=== PATIENT | male | born 1985 | race Caucasian/White ===

== ENCOUNTER 2019-03-05 14:48 | Emergency (ER) | payer MEDICARE, MEDICAID, SELFPAY ==
[2019-03-05] VITALS (45 sets, daily range): BP systolic 96–229; BP diastolic 34–159; PULSE 53–151; RESP 11–35; TEMP 36.8; O2SAT 70–100
--- NOTE | 2019-03-05 15:05 | DI.RAD_ITS ---
EXAM: XR PORTABLE CHEST AP INDICATION: SOB. COMPARISON: No exams were available for comparison TECHNIQUE: 2D digital imaging was performed. FINDINGS: The exam is quite limited by positioning, body habitus and lack of pulmonary inflation. The heart si ze is within normal limits for projection. The lungs are grossly clear. IMPRESSION: Limited exam. No gross evidence of an acute abnormality.
[2019-03-05] MEDS: LORazepam 2 MG/ML VIAL 1 MG IVP (15:16)
[2019-03-05] MEDS: Normal Saline 1,000 ML 1000 ML IV (15:18)
[2019-03-05 15:32] LABS: Abs Immature Grans 0.05 k/cumm (0.0-0.09); Absolute Monocyte Count 1.81 k/cumm (0.11-0.7); Absolute Neutrophil Count 6.51 k/cumm (1.2-6.7); Basophils % 0.8; Eosinophils % 0.5; HCT 38.7 % (40.0-50.0); HGB 11.7 g/dL (13.5-17.5); Immature Grans % 0.4; Mean Corp. HGB Concentration 30.2 g/dL (32.0-36.0); Mean Corpuscular Hemoglobin 23.7 pg (27.0-33.0); Mean Corpuscular Volume 78.5 fL (80-95); Mean Platelet Volume 9.7 fL (8.0-11.0); Neutrophils % 50.3; RBC 4.93 m/cumm (4.50-6.00); RBC Distribution Width 17.1 % (11.8-14.1); White Blood Cell Count 12.94 k/cumm (4.4-10.8)
[2019-03-05] MEDS: Naloxone 0.4 MG/ML VIAL IVP (15:36)
[2019-03-05 15:41] LABS: ALT 126 U/L (16-63); AST 67 U/L (15-37); Albumin 3.4 g/dL (3.4-5.0); Alkaline Phosphatase 97 U/L (46-116); Anion Gap 9.4 mmol/L (3-11); BUN 22 mg/dL (7-18); Bilirubin, Total 0.3 mg/dL (0.2-1.0); CO2 26.6 mmol/L (21.0-32.0); CREATININE 1.91 mg/dL (0.70-1.30); Calcium 8.7 mg/dL (8.5-10.1); Chloride 102 mmol/L (98-107); Estimated GFR 40.78 (mL/min/1.73m2); Glucose 99 mg/dL (70-100); Potassium 4.2 mmol/L (3.5-5.1); Sodium 138 mmol/L (136-145); Total Protein 8.5 g/dL (6.4-8.2)
[2019-03-05 15:42] LABS: Troponin I < 0.05 ng/mL (0.00-0.06)
[2019-03-05 15:45] LABS: INR 1.1 (0.9-1.1); NT-proBNP 147 pg/mL
[2019-03-05] MEDS: Pantoprazole 40 MG VIAL IVP (15:50)
[2019-03-05] MEDS: Normal Saline Flush 10 ML SYR IVP (15:50)
[2019-03-05 15:53] LABS: Absolute Eosinophil Count 0.06 k/cumm (0.0-0.7); Platelet Count 581 x1000/uL (130-400)
[2019-03-05 15:54] LABS: Anisocytosis 1+; Diff Comment Agrees w/ Instrument; Microcytosis 1+; Polychromasia Present
[2019-03-05 16:01] LABS: D-Dimer 653 ng/mlFEU (<500)
--- NOTE | 2019-03-05 17:22 | DI.RAD_ITS ---
EXAM: XR PORTABLE CHEST AP POST LINE CLINICAL HISTORY: tube placement TECHNIQUE: Supine portable AP chest was obtained 1720 hours. COMPARISON: XR PORTABLE CHEST AP from 03/05/2019 FINDINGS: There is a small endotracheal tube positioned over the mediastinal midline about 4 cm above the dodie na. There is new diffuse mediastinal and subcutaneous emphysema, not present on examination at 1525 hours. Correlation requested regarding tracheobronchial injury. There are diffuse bilateral pulmona ry infiltrates also new since the previous examination, the findings are nonspecific but may represen t ARDS and/or CHF. Cardiac size appears mildly enlarged. IMPRESSION: Appropriate follow-up examinations recommended. Chest CT may be obtained for further evaluation.
[2019-03-05] MEDS: LORazepam 2 MG/ML VIAL (17:35)
--- NOTE | 2019-03-05 18:07 | DI.VRAD_ITS ---
Addendum created by Alan Zepeda MD on 03/05/2019 6:11:50 PM EST Findings were discussed with FITO FINK at 03/05/2019 6:11 PM EST. Initial report created on 03/05/2019 6:06:45 PM EST PROCEDURE INFORMATION: Exam: XR Chest, 1 View Exam date and time: 03/05/2019 5:44 PM Clinical history: 33 years old, male; Other: Tube placement TECHNIQUE: Imaging protocol: XR of the chest Views: 1 view. COMPARISON: CR XR PORTABLE CHEST AP 03/05/2019 3:12 PM FINDINGS: Tubes, catheters and devices: Small caliber endotracheal tube is satisfactory positioned 3.8 cm above the monisha. Lungs: There are extensive diffuse bilateral groundglass pulmonary opacities. Pleural space: Unremarkable. No pleural effusion. No pneumothorax. Heart/Mediastinum: Mild cardiomegaly considering limitations of the AP supine projection. Vasculature: The apex of a vena cava filter is incidentally visualized. Bones/joints: Unremarkable. Soft tissues: There is pneumomediastinum as well as extensive bilateral subcutaneous emphysema. IMPRESSION: 1. Satisfactory position of endotracheal tube. 2. Pneumomediastinum and subcutaneous emphysema of uncertain origin. Recent surgery or penetrating injury would be primary considerations for this combination of findings. 3. Bilateral pulmonary opacities consistent with pulmonary edema, ARDS, or extensive pneumonia. Dictated and Authenticated by: Alan Zepeda MD. Ordering:SIMON Blum MD
--- NOTE | 2019-03-05 18:12 | SCONE_ITS ---
Date of service: 03/05/19 Time of Service: 18:12 Assessment and Plan Assessment and plan (1) Respiratory distress: Status: Acute Assessment and plan: A\\ 33 year old with oropharyngeal swelling with re spiratory distress and eventual loss of the airway. P\\ Emergent cricothyroidectomy History of Present Illness History of Present Illness Chief Complaint: Respiratory distress Narrative: Mr. Allison is a 33 year old male with a PMHx of drug abuse who came to the ER with respiratory distress after inhaled hot heroin. Patient was working hard to breath. He was coughing. Anesthesia was called to try and intubate patient. Please see their dictation Consults Consult date: 03/05/19 Requesting physician: Viktoria Main [facility] Medical History (Updated 03/05/19 @ 18:26 by Addie Trujillo MD) Drug abuse, continuous (Inactive) Hypercoagulable state (Acute) Surgical History (Updated 03/05/19 @ 18:19 by Addie Trujillo MD) H/O abdominal surgery (Acute) History of left below knee amputation (Acute) Social History Smoking/Tobacco Use Status: Current every day Tobacco Type: cigarettes Drug use: Current Sobriety Substance use type: crack/cocaine Details: mother states recent crack use Exam Const General: in distress, ill appearing and intoxicated appearing Nutritional Appearance: obese Neck Other: Thick and short neck. Hard to find the thyroid cartilage and crichoid membrane Results Last Vital Signs Temp 98.2 F 03/05/19 14:51 Pulse 122 H 03/05/19 14:51 Resp 28 H 03/05/19 14:51 Pulse Ox 88 L 03/05/19 14:51 Labs Result diagrams: 03/05/19 15:00 03/05/19 15:00 Labs: Laboratory Results - last 24 hr 03/05/19 03/05/19 03/05/19 15:00 15:00 15:00 WBC 12.94 H RBC 4.93 Hgb 11.7 L Hct 38.7 L MCV 78.5 L MCH 23.7 L MCHC 30.2 L RDW 17.1 H Plt Count 581 H MPV 9.7 Immature Gran % 0.4 Neutrophils % 50.3 Lymphocytes % 34.0 Monocytes % 14.0 Eosinophils % 0.5 Basophils % 0.8 Absolute Neutrophils 6.51 Absolute Lymphocytes 4.40 H Absolute Monocytes 1.81 H Absolute Eosinophils 0.06 Absolute Basophils 0.10 Differential Comment Agrees w/ instrument RBC Morphology See below Polychromasia Present Anisocytosis 1+ Microcytosis 1+ PT 11.0 INR 1.1 D-Dimer Sodium 138 Potassium 4.2 Chloride 102 Carbon Dioxide 26.6 Anion Gap 9.4 BUN 22 H Creatinine 1.91 H Estimated GFR/1.73 m2 40.78 Glucose 99 Calcium 8.7 Total Bilirubin 0.3 AST 67 H ALT 126 H Alkaline Phosphatase 97 Troponin I < 0.05 NT-Pro-B Natriuret Pep Total Protein 8.5 H Albumin 3.4 03/05/19 03/05/19 15:00 15:00 WBC RBC Hgb Hct MCV MCH MCHC RDW Plt Count MPV Immature Gran % Neutrophils % Lymphocytes % Monocytes % Eosinophils % Basophils % Absolute Neutrophils Absolute Lymphocytes Absolute Monocytes Absolute Eosinophils Absolute Basophils Differential Comment RBC Morphology Polychromasia Anisocytosis Microcytosis PT INR D-Dimer 653 H Sodium Potassium Chloride Carbon Dioxide Anion Gap BUN Creatinine Estimated GFR/1.73 m2 Glucose Calcium Total Bilirubin AST ALT Alkaline Phosphatase Troponin I NT-Pro-B Natriuret Pep 147 Total Protein Albumin Procedures Cricothyrotomy Indications: significant oropharyngeal edema Tube type: tracheal C-Spine immobilization present: No Patient preparations: local not needed and area cleansed with antiseptic Technique choice: surgical cricothyrotomy Endotracheal tube size: 6 Cuffed tube: Yes End tidal CO2 checked: positive Bilateral breath sounds: Yes Complications: subcutaneous emphysema and difficult to ventilate Additional comments: After multiple attempts at intubation the neck was quickly cleaned with betadine. An incision was made and I tried to place the needle into the cricoid cartilage but was unable. Patient coded at this time. CPR was started. While doing CPR a larger incision was made with a 15 blade. Visulaization was poor due to the patient body habitus with a large neck. Eventually the cricoid membrane was palpated. It was punctured with a 15 blade and opened with a hemostat. An attempt was made to place a 5 ET Tube. Patient was ventilated but there was no CO2 noted. Tube was removed. I placed my finger into the trachea and attempted again to place the tube without success. After a few attempts anesthesia was able to place a 6 tracheostomy tube. At this point patient was ventilated. Vaseline gauze was placed around the tube and the tube was secured.
--- NOTE | 2019-03-05 18:13 | NUR.NOTE ---
Nursing Note:16:00 preparing patient for visualization of airway with glidescope. Patient given lidocaine by Lawrence Khanna CRNA. Concern for laryngeal edema due to hoarseness of voice and respiratory distress. 16:16 Ketamine 50 mg IV given. 16:20 patient still agitated 50mg of Ketamine given IV. 16:22 50 mg of Ketamine given IV. 16:29 Patient still agitated respirations 32 Versed 1 mg given as ordered. 16:34 2 more mg Versed IV given 16:35 Ketamine 50mg given IV. 16:37 Patient still restless 2 mg Versed given IV as ordered. 16:42 [employer]DLE [employer] Tita Khanna visualizes edema in airway attempts intubation. Succinylcholine 130 mg given as ordered. Unable to intubate. Decision made to do cricothyrostomy. 16:51 monitor showed bradycardia in the 30's pulse check was done, no pulse CPR started. 16:51 Epi 1 mg given as ordered. 16:58 patient regained pulse heart rate 134. 17:00 Succinylocholine 80mg given. 17:00 patient PEA CPR resumed Epi 0.5mg given. 17:03 CPR continues Epi 0.5 given IV. 17:06 PEA Epi 1 mg given IV 17:10 PEA Epi 1 mg given IV CPR continues 17:13 PEA Epi 1 mg given IV. 17:20 patient in sinus tach rate in 120's. Strong pulses. Trach with size 6 tube. Patient ventilated by RT. Patient unresponsive with strong pulses. 17:30 Patient remains unresponsive pupils 5mm and fixed. 18:00 patient remains intubated, taking spontaneous breaths every 10 seconds. Pupils 3mm sluggish. 18:15 report given to Hamilton Wells RN
--- NOTE | 2019-03-05 18:17 | ED.GENADUL_ITS ---
Discharge Plan Discharge Details Chief Complaint: RespSymp Primary Care Provider: Sonali Collins ED Provider: Viktoria Main Home Meds and New Rx's Prescriptions: No Action citalopram [Celexa] 40 MG tablet 40 mg PO DAILY RF: 0 lisinopril 20 MG tablet 20 mg PO DAILY RF: 0 clopidogrel [Plavix] 75 MG tablet 75 mg PO DAILY RF: 0 aspirin [Aspir-81] 81 MG tablet,delayed release (DR/EC) 81 mg PO DAILY RF: 0 warfarin [Coumadin] 5 MG tablet 10 mg PO DAILY RF: 0 omeprazole [Prilosec] 20 MG capsule,delayed release(DR/EC) 20 mg PO DAILY RF: 0 aripiprazole [Abilify] 5 MG tablet 5 mg PO DAILY RF: 0 Medical Decision Making Vamshi Allison is a 33-year-old man with history of spherocytosis status post splenectomy, clotting disorder on Coumadin, hypertension, polysubstance use disorder who presented to the emergency department complaining of shortness of breath. On exam patient is chronically ill-appearing. He is somewhat tachypneic, and has occasional expiratory stridor. He is handling secretions without issue. Hoarse voice. Normal oropharynx. Concern for possible upper airway edema related to smoking crack, less likely pulmonary embolism, pneumonia, other. Plan for screening labs, nebulized lidocaine, chest x-ray, lateral neck x-ray, EKG. Patient becoming increasingly anxious, stating he smoked too much crack. Plan for Ativan. Chest x-ray okay. Unable to perform portable lateral neck in seated position per x-ray technicians. Patient becoming diaphoretic with tachypnea mid 20s. Lungs remain clear to auscultation. Patient now intermittently closing eyes during conversation, now with pinpoint pupils. Concern for impending airway obstruction, also concern for opiate intoxication given heroin use today and pinpoint pupils. Patient moved to bed to, given 0.4 mg of Narcan with no further somnolence. Given concern for possible airway edema, anesthesia called to bedside for possible fiberoptic intubation. Patient maintaining 99% O2 sat on 3 L nasal cannula. Surgery also at bedside in case of need for possible Crich. Attempted awake intubation. Patient given nebulized lidocaine, ketamine to achieve dissociative state while maintaining respiratory drive. Airway visualized easily by anesthesia with kaleidoscope, on video screen patient's airway obstructed with severe edema of the larynx and vocal cords, 1 to 2 mm of airway patency. Patient given Versed to enhance sedation. Anesthesia attempted intubation with 6 oh ET tube, unable to pass. Unable to pass fiberoptic scope. Patient with somewhat decreasing O2 sats into the low 90s. Concern that inadequate sedation, lack of paralysis contributing to difficulty with intubation, plan for RSI. Patient administered succinylcholine. Maintained good visualization of airway with glidescope, unable to pass 6.0 ET tube, bougie, pediatric bougie. Some difficulty with maintaining oxygenation during attempts, oxygenation into high 80s. Plan for emergent crich. Crich attempted by Dr. Trujillo. Chronic difficult secondary to body habitus and significant amount of soft tissue of the neck. O2 sats in the 80s. Patient redosed with succinylcholine. Patient developed bradycardia, 0.5 mg epinephrine given with some improvement, continued to perform Crich with Dr. Trujillo, myself, and anesthesia at bedside. Patient was back by respiratory therapy during entirety of crack attempt. Patient again developed bradycardia, received 0.5 mg of epinephrine. Patient lost pulses, CPR initiated immediately. Patient with PEA on rhythm check. Patient received epinephrine. Patient with r eturn of circulation, continuing to bag and attempt to crich. Patient again lost pulses, CPR initiated immediately. Patient with PEA on monitor at all pulse checks. Patient received multiple rounds of epinephrine. Chronic successful, 5.0 trach placed (cuffed). Color change on end-tidal, good breath sounds bilaterally. ROSC achieved. Patient with tachycardia 120s, vital signs otherwise within normal limits. End-tidal CO2 initially in the 80s, improved into the 40s. Portable chest x-ray shows trach in good position, no pneumothorax, bilateral infiltrates consistent with pneumonia versus ARDS versus other. Suspect aspiration event, plan for antibiotics. I discussed patient with critical care team at [facility], who accepts patient for transfer by [facility]. Request antibiotics, no other interventions recommended at this time. Plan for vancomycin and cefepime. Patient initially with pupils 5 mm and unreactive bilaterally, no sedation required. Patient had spontaneous but not apparently purposeful movement after paramedics arrived. Patient switched event, end-tidal in the 50s. Family updated on details of patient status and multiple intervals, and family at bedside prior to departure from the emergency department. Patient left the emergency department with paramedics for transport by helicopter to [facility] without further incident. Clinical impression: Laryngeal edema, respiratory arrest Disposition: [facility] Medical Records Medical records reviewed: Yes I reviewed the patient's medical records. Imaging Data Radiologic Study: Attestation: I personally reviewed and interpreted this imaging study as follows: Radiologist's impression: Exam: XR Chest, 1 View Exam date and time: 03/05/2019 5:44 PM Clinical history: 33 years old, male; Other: Tube placement TECHNIQUE: Imaging protocol: XR of the chest Views: 1 view. COMPARISON: CR XR PORTABLE CHEST AP 03/05/2019 3:12 PM FINDINGS: Tubes, catheters and devices: Small caliber endotracheal tube is satisfactory positioned 3.8 cm above the monisha. Lungs: There are extensive diffuse bilateral groundglass pulmonary opacities. Pleural space: Unremarkable. No pleural effusion. No pneumothorax. Heart/Mediastinum: Mild cardiomegaly considering limitations of the AP supine projection. Vasculature: The apex of a vena cava filter is incidentally visualized. Bones/joints: Unremarkable. Soft tissues: There is pneumomediastinum as well as extensive bilateral subcutaneous emphysema. IMPRESSION: 1. Satisfactory position of endotracheal tube. 2. Pneumomediastinum and subcutaneous emphysema of uncertain origin. Recent surgery or penetrating injury would be primary considerations for this combination of findings. 3. Bilateral pulmonary opacities consistent with pulmonary edema, ARDS, or extensive pneumonia. EXAM: XR PORTABLE CHEST AP INDICATION: SOB. COMPARISON: No exams were available for comparison TECHNIQUE: 2D digital imaging was performed. FINDINGS: The exam is quite limited by positioning, body habitus and lack of pulmonary inflation. The heart size is within normal limits for projection. The lungs are grossly clear. IMPRESSION: Limited exam. No gross evidence of an acute abnormality. Lab Data Lab results reviewed: Yes I reviewed the patient's lab results. Labs: Laboratory Tests Range/Units 03/05/19 03/05/19 03/05/19 15:00 15:00 15:00 WBC (4.4-10.8) k/cumm 12.94 H RBC (4.50-6.00) m/cumm 4.93 Hgb (13.5-17.5) g/dL 11.7 L Hct (40.0-50.0) % 38.7 L MCV (80-95) fL 78.5 L MCH (27.0-33.0) pg 23.7 L MCHC (32.0-36.0) g/dL 30.2 L RDW (11.8-14.1) % 17.1 H Plt Count (130-400) x1000/uL 581 H MPV (8.0-11.0) fL 9.7 Immature Gran % 0.4 Neutrophils % 50.3 Lymphocytes % 34.0 Monocytes % 14.0 Eosinophils % 0.5 Basophils % 0.8 Absolute Neutrophils (1.2-6.7) k/cumm 6.51 Absolute Lymphocytes (1.2-3.4) k/cumm 4.40 H Absolute Monocytes (0.11-0.7) k/cumm 1.81 H Absolute Eosinophils (0.0-0.7) k/cumm 0.06 Absolute Basophils (0.0-0.2) k/cumm 0.10 Differential Comment Agrees w/ instrument RBC Morphology See below Polychromasia Present Anisocytosis 1+ Microcytosis 1+ PT (9.3-11.0) sec 11.0 INR (0.9-1.1) 1.1 D-Dimer (<500) ng/mlFEU VBG pH (7.32-7.43) VBG pCO2 (34-47) mm/Hg VBG pO2 (28-44) mm/Hg VBG HCO3 (22-28) mmol/L VBG Total CO2 (22-29) mmol/L VBG O2 Saturation (70-80) % VBG Base Excess (-3-3) mmol/L Sodium (136-145) mmol/L 138 Potassium (3.5-5.1) mmol/L 4.2 Chloride (98-107) mmol/L 102 Carbon Dioxide (21.0-32.0) mmol/L 26.6 Anion Gap (3-11) mmol/L 9.4 BUN (7-18) mg/dL 22 H Creatinine (0.70-1.30) mg/dL 1.91 H Estimated GFR/1.73 m2 (mL/min/1.73m2) 40.78 Glucose (70-100) mg/dL 99 Calcium (8.5-10.1) mg/dL 8.7 Total Bilirubin (0.2-1.0) mg/dL 0.3 AST (15-37) U/L 67 H ALT (16-63) U/L 126 H Alkaline Phosphatase (46-116) U/L 97 Troponin I (0.00-0.06) ng/mL < 0.05 NT-Pro-B Natriuret Pep ( - 299) pg/mL Total Protein (6.4-8.2) g/dL 8.5 H Albumin (3.4-5.0) g/dL 3.4 HIV 1&2 Antibody Rapid Range/Units 03/05/19 03/05/19 03/05/19 15:00 15:00 17:45 WBC (4.4-10.8) k/cumm RBC (4.50-6.00) m/cumm Hgb (13.5-17.5) g/dL Hct (40.0-50.0) % MCV (80-95) fL MCH (27.0-33.0) pg MCHC (32.0-36.0) g/dL RDW (11.8-14.1) % Plt Count (130-400) x1000/uL MPV (8.0-11.0) fL Immature Gran % Neutrophils % Lymphocytes % Monocytes % Eosinophils % Basophils % Absolute Neutrophils (1.2-6.7) k/cumm Absolute Lymphocytes (1.2-3.4) k/cumm Absolute Monocytes (0.11-0.7) k/cumm Absolute Eosinophils (0.0-0.7) k/cumm Absolute Basophils (0.0-0.2) k/cumm Differential Comment RBC Morphology Polychromasia Anisocytosis Microcytosis PT (9.3-11.0) sec INR (0.9-1.1) D-Dimer (<500) ng/mlFEU 653 H VBG pH (7.32-7.43) VBG pCO2 (34-47) mm/Hg VBG pO2 (28-44) mm/Hg VBG HCO3 (22-28) mmol/L VBG Total CO2 (22-29) mmol/L VBG O2 Saturation (70-80) % VBG Base Excess (-3-3) mmol/L Sodium (136-145) mmol/L Potassium (3.5-5.1) mmol/L Chloride (98-107) mmol/L Carbon Dioxide (21.0-32.0) mmol/L Anion Gap (3-11) mmol/L BUN (7-18) mg/dL Creatinine (0.70-1.30) mg/dL Estimated GFR/1.73 m2 (mL/min/1.73m2) Glucose (70-100) mg/dL Calcium (8.5-10.1) mg/dL Total Bilirubin (0.2-1.0) mg/dL AST (15-37) U/L ALT (16-63) U/L Alkaline Phosphatase (46-116) U/L Troponin I (0.00-0.06) ng/mL NT-Pro-B Natriuret Pep ( - 299) pg/mL 147 Total Protein (6.4-8.2) g/dL Albumin (3.4-5.0) g/dL HIV 1&2 Antibody Rapid Cancelled Range/Units 03/05/19 03/05/19 18:14 18:14 WBC (4.4-10.8) k/cumm RBC (4.50-6.00) m/cumm Hgb (13.5-17.5) g/dL Hct (40.0-50.0) % MCV (80-95) fL MCH (27.0-33.0) pg MCHC (32.0-36.0) g/dL RDW (11.8-14.1) % Plt Count (130-400) x1000/uL MPV (8.0-11.0) fL Immature Gran % Neutrophils % Lymphocytes % Monocytes % Eosinophils % Basophils % Absolute Neutrophils (1.2-6.7) k/cumm Absolute Lymphocytes (1.2-3.4) k/cumm Absolute Monocytes (0.11-0.7) k/cumm Absolute Eosinophils (0.0-0.7) k/cumm Absolute Basophils (0.0-0.2) k/cumm Differential Comment RBC Morphology Polychromasia Anisocytosis Microcytosis PT (9.3-11.0) sec INR (0.9-1.1) D-Dimer (<500) ng/mlFEU VBG pH (7.32-7.43) 7.14 L VBG pCO2 (34-47) mm/Hg 58 H VBG pO2 (28-44) mm/Hg 74 H VBG HCO3 (22-28) mmol/L 20 L VBG Total CO2 (22-29) mmol/L 19 L VBG O2 Saturation (70-80) % 92 H VBG Base Excess (-3-3) mmol/L -9.2 L Sodium (136-145) mmol/L Potassium (3.5-5.1) mmol/L Chloride (98-107) mmol/L Carbon Dioxide (21.0-32.0) mmol/L Anion Gap (3-11) mmol/L BUN (7-18) mg/dL Creatinine (0.70-1.30) mg/dL Estimated GFR/1.73 m2 (mL/min/1.73m2) Glucose (70-100) mg/dL Calcium (8.5-10.1) mg/dL Total Bilirubin (0.2-1.0) mg/dL AST (15-37) U/L ALT (16-63) U/L Alkaline Phosphatase (46-116) U/L Troponin I (0.00-0.06) ng/mL < 0.05 NT-Pro-B Natriuret Pep ( - 299) pg/mL Total Protein (6.4-8.2) g/dL Albumin (3.4-5.0) g/dL HIV 1&2 Antibody Rapid HPI General Mode of arrival: ambulatory . Date/Time Provider Initiated Documentation: 03/05/19 14:48 . Limitations to Documentation: no limitations . Information obtained by: patient, family, RN notes reviewed and old records reviewed . HPI Narrative: Keegan Desir is a 33-year-old man with a history of spherocytosis status post splenectomy, clotting disorder with history of lower extremity clots resulting in left leg amputation letter is currently on Coumadin, hypertension, poly substance use disorder presenting to the emergency department with shortness of breath. Patient is accompanied by his mother who also provides a history. Patient and his mother state that he has been smoking crack all day for the past 3 days. Patient has also been using heroin daily. Patient states that he has been short of breath since yesterday. Patient reports that his throat feels dry but not tight. He reports pain in his right inguinal area, denies any other pain. Hoarse voice per his mother. Patient reports that his symptoms have not changed since onset yesterday. No fevers, cough, vomiting, diarrhea, numbness, weakness. Related Data Home Medications Medication Instructions Recorded Confirmed aripiprazole [Abilify] 5 mg PO DAILY 04/26/14 03/05/19 aspirin [Aspir-81] 81 mg PO DAILY 04/26/14 03/05/19 citalopram [Celexa] 40 mg PO DAILY 04/26/14 03/05/19 clopidogrel [Plavix] 75 mg PO DAILY 04/26/14 03/05/19 lisinopril 20 mg PO DAILY 04/26/14 03/05/19 omeprazole [Prilosec] 20 mg PO DAILY 04/26/14 03/05/19 warfarin [Coumadin] 10 mg PO DAILY 04/26/14 03/05/19 Allergies Allergy/AdvReac Type Severity Reaction Status Date / Time No Known Allergies Allergy Unverified 08/05/14 15:30 General Stated Complaint: RespSymp KARLA: 2 Review of Systems Narrative: Constitutional: denies fevers Eyes: denies eye pain ENT: denies facial pain, dental pain, sore throat, reports dry throat Cardiovascular: denies chest pain, edema Respiratory: denies cough, reports shortness of breath GI: denies abdominal pain, vomiting, diarrhea : denies flank pain MSK: denies back pain, neck pain, arthralgias, reports pain in right upper thigh/groin area, has been ongoing for at least a week Skin: denies rash Neuro: denies headaches, numbness, weakness [facility] Medical History Drug abuse, continuous (Inactive) Hypercoagulable state (Acute) Surgical History (Updated 03/05/19 @ 18:19 by Addie Trujillo MD) H/O abdominal surgery (Acute) History of left below knee amputation (Acute) Social History Smoking/Tobacco Use Status: Current every day Tobacco Type: cigarettes Drug use: Current Sobriety Substance use type: crack/cocaine Details: mother states recent crack use Exam Narrative Exam Narrative: Constitutional: Chronically ill-appearing, tachypneic but not in significant respiratory distress, conversing normally HENT: head atraumatic/normocephalic/normal inspection, mucous membranes dry, hoarse voice, no pooling of secretions or drooling, normal exam of the oropharynx without lesion or edema Eyes: conjunctiva normal, sclera normal, pupils 3mm b/l Neck: no stridor, normal ROM, trachea midline Chest: normal inspection Resp: Tachypneic 20-25, very occasional inspiratory stridor noted, LCTAB Cardio: normal rate, normal rhythm, no murmur appreciated GI: abdomen soft, non-tender, non-distended, well-healed surgical scar secondary to splenectomy Back: normal inspection, no rash Skin: warm, dry, normal color, no rash Neuro: alert, not altered, grossly non-focal, normal tone Ext: no edema, left leg amputation Psych: Anxious Course Vital Signs Vital signs: Vital Signs Temperature 36.8 C 03/05/19 14:51 Pulse 122 H 03/05/19 14:51 Respiratory Rate 28 H 03/05/19 14:51 Pulse Oximetry 88 L 03/05/19 14:51 Temperature 36.8 C 03/05/19 14:51 Temperature Source Skin 03/05/19 14:51 Pulse 122 H 03/05/19 14:51 Respiratory Rate 28 H 03/05/19 14:51 Respiratory Effort Labored 03/05/19 14:55 Respiratory Depth Shallow 03/05/19 14:55 Blood Pressure Position Sitting 03/05/19 14:51 Pulse Oximetry 88 L 03/05/19 14:51 Oxygen Delivery Method Room Air 03/05/19 14:51 Oxygen Flow Rate 0 03/05/19 14:51 Lab/Test Results Lab/Test Results: Laboratory Tests Range/Units 03/05/19 03/05/19 03/05/19 15:00 15:00 15:00 WBC (4.4-10.8) k/cumm 12.94 H RBC (4.50-6.00) m/cumm 4.93 Hgb (13.5-17.5) g/dL 11.7 L Hct (40.0-50.0) % 38.7 L MCV (80-95) fL 78.5 L MCH (27.0-33.0) pg 23.7 L MCHC (32.0-36.0) g/dL 30.2 L RDW (11.8-14.1) % 17.1 H Plt Count (130-400) x1000/uL 581 H MPV (8.0-11.0) fL 9.7 Immature Gran % 0.4 Neutrophils % 50.3 Lymphocytes % 34.0 Monocytes % 14.0 Eosinophils % 0.5 Basophils % 0.8 Absolute Neutrophils (1.2-6.7) k/cumm 6.51 Absolute Lymphocytes (1.2-3.4) k/cumm 4.40 H Absolute Monocytes (0.11-0.7) k/cumm 1.81 H Absolute Eosinophils (0.0-0.7) k/cumm 0.06 Absolute Basophils (0.0-0.2) k/cumm 0.10 Differential Comment Agrees w/ instrument RBC Morphology See below Polychromasia Present Anisocytosis 1+ Microcytosis 1+ PT (9.3-11.0) sec 11.0 INR (0.9-1.1) 1.1 D-Dimer (<500) ng/mlFEU Sodium (136-145) mmol/L 138 Potassium (3.5-5.1) mmol/L 4.2 Chloride (98-107) mmol/L 102 Carbon Dioxide (21.0-32.0) mmol/L 26.6 Anion Gap (3-11) mmol/L 9.4 BUN (7-18) mg/dL 22 H Creatinine (0.70-1.30) mg/dL 1.91 H Estimated GFR/1.73 m2 (mL/min/1.73m2) 40.78 Glucose (70-100) mg/dL 99 Calcium (8.5-10.1) mg/dL 8.7 Total Bilirubin (0.2-1.0) mg/dL 0.3 AST (15-37) U/L 67 H ALT (16-63) U/L 126 H Alkaline Phosphatase (46-116) U/L 97 Troponin I (0.00-0.06) ng/mL < 0.05 NT-Pro-B Natriuret Pep ( - 299) pg/mL Total Protein (6.4-8.2) g/dL 8.5 H Albumin (3.4-5.0) g/dL 3.4 Range/Units 03/05/19 03/05/19 15:00 15:00 WBC (4.4-10.8) k/cumm RBC (4.50-6.00) m/cumm Hgb (13.5-17.5) g/dL Hct (40.0-50.0) % MCV (80-95) fL MCH (27.0-33.0) pg MCHC (32.0-36.0) g/dL RDW (11.8-14.1) % Plt Count (130-400) x1000/uL MPV (8.0-11.0) fL Immature Gran % Neutrophils % Lymphocytes % Monocytes % Eosinophils % Basophils % Absolute Neutrophils (1.2-6.7) k/cumm Absolute Lymphocytes (1.2-3.4) k/cumm Absolute Monocytes (0.11-0.7) k/cumm Absolute Eosinophils (0.0-0.7) k/cumm Absolute Basophils (0.0-0.2) k/cumm Differential Comment RBC Morphology Polychromasia Anisocytosis Microcytosis PT (9.3-11.0) sec INR (0.9-1.1) D-Dimer (<500) ng/mlFEU 653 H Sodium (136-145) mmol/L Potassium (3.5-5.1) mmol/L Chloride (98-107) mmol/L Carbon Dioxide (21.0-32.0) mmol/L Anion Gap (3-11) mmol/L BUN (7-18) mg/dL Creatinine (0.70-1.30) mg/dL Estimated GFR/1.73 m2 (mL/min/1.73m2) Glucose (70-100) mg/dL Calcium (8.5-10.1) mg/dL Total Bilirubin (0.2-1.0) mg/dL AST (15-37) U/L ALT (16-63) U/L Alkaline Phosphatase (46-116) U/L Troponin I (0.00-0.06) ng/mL NT-Pro-B Natriuret Pep ( - 299) pg/mL 147 Total Protein (6.4-8.2) g/dL Albumin (3.4-5.0) g/dL Critical Care Time Critical Care Time Attestation: I have spent greater than 75 minutes of critical care time excluding procedures with this critically ill patient including frequent reassessments, discussion with consultants, and discussions with family.
[2019-03-05 18:19] LABS: HCO3 (Venous) 20 mmol/L (22-28); O2 Sat (Venous) 92 % (70-80); TCO2 (Venous) 19 mmol/L (22-29); pCO2 (Venous) 58 mm/Hg (34-47); pO2 (Venous) 74 mm/Hg (28-44)
[2019-03-05 18:24] LABS: BE (Venous) -9.2 mmol/L (-3-3); pH (Venous) 7.14 (7.32-7.43)
[2019-03-05] MEDS: VANCOMYCIN 1,500 MG in Normal Saline 250 ML 166.6666 MG IVPB (18:35)
[2019-03-05] MEDS: CEFEPIME 2 GM in Normal Saline 100 ML IVPB (18:35)
[2019-03-05 18:40] LABS: Troponin I < 0.05 ng/mL (0.00-0.06)
--- NOTE | 2019-03-05 18:55 | PDOC.ANES ---
Date of service: 03/05/19 Time of Service: 18:56 Anesthesia Note Report Anesthesia Note: Consulted for airway management by Dr. Viktoria Main. Pt. is a 33 yo male who reportedly has been using heroin and smoking crystal meth for the last few days. He presents to the ED with stridor and SOB. Pt. is awake, agitated, conversing with one or two word sentences with noted increased work of breathing. Reportedly he sounds better but is looking worse. He is sitting bolt upright on high flow nasal cannula oxygen asking to just be put to sleep. Plan was made with Dr. Main to secure airway. Given history and exam, airway equipment prepared, medications prepared, and BVM/suction at bedside. 4ml 4% lidocaine via atomizer in hypopharynx along with 4% lidocaine nebulizer given and supplemented with ketamine until glidescope could be introduced. Flexible video scope also prepared to use independent of or alongside glidescope. Pt. becoming less cooperative and more agitated but did tolerate glidescope with #4 blade insertion without gag reflex, easily viewed epiglottis revealing tunnelled glottic opening with significant swelling. Attempted to place 6.0 ETT over glide stylet and despite good view and visualization of narrow glottic opening, unable to pass ETT. Due to declining SpO2 and poor cooperation, decision made to give muscle relaxant to optimize airway view. OPA placed and 2 person difficult BVM began with some chest rise as well as some abdominal rise with ventilation. Next attempt performed with flexible video scope and 5.0mm ETT with secretions noted and difficult glottic opening view despite suctioning, passed ETT with no ETCO2 confirmation X 2 breaths. ETT removed, oropharynx suctioned. OPA placed and 2 person difficult BVM began with some chest rise as well as some abdominal rise with ventilation. Pt. SpO2 maintaining 88-94% during attempts but now 88-90%. Decision made to place surgical airway given previous attemtps and difficulty masking. Please see Dr. Gurrola note for procedure. Unable to secure airway from above, and difficult placement of surgical airway. Pt. with episodic cardiac arrest (bradycardia/Asystole) with medications and CPR given. During ongoing cricothyrotomy, attempt made to again use glidescope and bougie without success due to large amount of gastric contents in mouth despite suctioning. Also attempted to pass flexible video scope nasally but again no view or reassuring signs that the trachea was reached. Airway secured with 6.0mm cuffed tracheostomy tube with ETCO2 confirmation and secured with trach tie.
== END 2019-03-05 19:30 ==
PROVIDERS: Emergency Provider Student in an Organized Health Care Education/Training Program; PCP Physician Assistant Medical
DX: R06.03 Acute respiratory distress (principal); T40.1X1A Poisoning by heroin, accidental (unintentional), initial encounter; F10.129 Alcohol abuse with intoxication, unspecified; F11.10 Opioid abuse, uncomplicated; F17.210 Nicotine dependence, cigarettes, uncomplicated
CPT/HCPCS: 31605; 36415; 71045; 80053; 82805; 86803; 87340; 87389; 96361; 96365; 96368; 96375; 99253; 99284; 99285; 83880; 84484; 85025; 85379; 85610; J2060; J2310